=== PATIENT | male | born 1980 | race African-American/Black ===

== ENCOUNTER 2020-02-24 15:52 | Emergency (ER) | payer BC, OTHER ==
[~2020-02-24] VITALS: Ht 180.3 cm; Wt 83.9 kg
[2020-02-24 21:36] VITALS: BP 133/93
[2020-02-24] MEDS ORDERED: NEOMYCIN-BACITRACIN-POLYM 15GM TOP OINT TOP ONE (23:15)
[2020-02-24] MEDS ORDERED: NEOMYCIN-BACITRACIN-POLYM UNITDOSE PKG TOP OINT TOP ONE (23:15)
[2020-02-24] MEDS ORDERED: BACITRACIN TOP OINT 1 UD PKG TOP ONE (23:30)
== END 2020-02-24 23:53 | disposition home or self-care (01) ==
LOC: ER 16:01
DX: S82.832A Other fracture of upper and lower end of left fibula, initial encounter for closed fracture (principal); S80.811A Abrasion, right lower leg, initial encounter; S80.812A Abrasion, left lower leg, initial encounter; S30.811A Abrasion of abdominal wall, initial encounter; F17.210 Nicotine dependence, cigarettes, uncomplicated; V49.9XXA Car occupant (driver) (passenger) injured in unspecified traffic accident, initial encounter; Y93.89 Activity, other specified; Y92.89 Other specified places as the place of occurrence of the external cause; Y99.8 Other external cause status
CPT/HCPCS: 29515; 73610